=== PATIENT | female | born 1960 | race Caucasian/White ===

== ENCOUNTER → 2020-04-11 11:18 | Outpatient (CLI) | payer OTHER, SELFPAY ==
--- NOTE | ~2020-04-11 | CT_ITS ---
EXAMINATION: CT abdomen pelvis w con DATE: 04/11/2020 11:58 INDICATION: Overlapping malignant neoplasm of the colon. TECHNIQUE: Computed tomography (CT) of the abdomen and pelvis was performed with 100 mL Omnipaque-350 intravenous contrast. Automated exposure control and iterative reconstruction technique were employe d. The dose-length product was 196.73 mGy-cm. COMPARISON: Outside institution CT of the chest, abdomen and pelvis performed at the [facility] on 01/19/2020 FINDINGS: Calcified right lower lobe nodule along with multiple splenic calcific lesions consistent with old gr anulomatous disease. Lung bases are otherwise clear. Heart size is normal. No pericardial or pleural effusion. Liver, gallbladder, pancreas, bilateral adrenal glands and kidneys are normal. Postoperativ e change of prior right hemicolectomy with patent ileocolic anastomosis in the right lower quadrant. No bowel obstruction. There is an approximately 2.2 x 2.3 cm intraluminal nodular soft tissue density along a haustral fold in the rectum, unclear whether this represents focal wall thickening/neoplasm or fecal material. No evident correlate on the relatively recent CT . Bladder is normal. The uterus i s not identified and has likely been surgically resected. No free intraperitoneal gas or fluid. No pa thologically enlarged abdominal or pelvic lymphadenopathy. Mild lumbar levocurvature. Moderate disc h eight loss at L4-L5 with 6 mm anterolisthesis L4 on L5 and severe bilateral facet osteoarthritis at t his level. IMPRESSION: 1. New 2.2 x 2.3 cm nodular soft tissue density along a haustral fold at the rectum, unclear whether this represents focal wall thickening/neoplasm or fecal material. Could consider sigmoidoscopy for mo re definitive determination. 2. Postoperative change of right hemicolectomy with ileocolic anastomosis presumably for reported luh or colon cancer. No evident local recurrence or metastatic disease. Reviewed, dictated and finalized at location [facility] IMPRESSION: 1. New 2.2 x 2.3 cm nodular soft tissue density along a haustral fold at the re ctum, unclear whether this represents focal wall thickening/neoplasm or fecal m aterial. Could consider sigmoidoscopy for more definitive determination. 2. Postoperative change of right hemicolectomy with ileocolic anastomosis presu mably for reported prior colon cancer. No evident local recurrence or metastati c disease.
== END ==
PROVIDERS: Visit Provider Internal Medicine Medical Oncology
DX: C18.8 Malignant neoplasm of overlapping sites of colon (principal)
CPT/HCPCS: 74177; Q9967